=== PATIENT | female | born 1960 | race Caucasian/White ===

== ENCOUNTER 2019-04-03 07:49 | Outpatient (CLI) | payer BC, SELFPAY ==
--- NOTE | 2019-04-03 08:03 | MM_ITS ---
WS: [id number] SCREENING DIGITAL MAMMOGRAM WITH CAD HISTORY: SCREENING COMPARISON: 03/07/2018 and 10/05/2016 Bilateral CC and MLO views submitted. Computer aided detection analyzed. Breast composition: There are scattered areas of fibroglandular density. No suspicious masses, microc alcifications or architectural distortion. MM/[id number] IMPRESSION: BI-RADS: 1-Negative FOLLOW UP: 1 Year Follow-up
== END 2019-04-03 07:50 | disposition home or self-care (01) ==
LOC: RADSHAW 07:55
PROVIDERS: Family Provider Electrodiagnostic Medicine; PCP Electrodiagnostic Medicine; Visit Provider Electrodiagnostic Medicine
DX: Z12.31 Encounter for screening mammogram for malignant neoplasm of breast (principal)
CPT/HCPCS: 77067

== ENCOUNTER 2019-11-26 07:13 | Outpatient (RCR) | payer BC, SELFPAY | END 2019-12-14 23:59 | disposition home or self-care (01) | LOC: SPT 07:13 | PROVIDERS: PCP Electrodiagnostic Medicine; Referring Provider Nurse Practitioner Family; Visit Provider Nurse Practitioner Family | DX: M62.89 Other specified disorders of muscle (principal) | CPT/HCPCS: 97161; 97530 ==

== ENCOUNTER 2019-12-15 06:00 | Outpatient (RCR) | payer BC, SELFPAY | END 2020-01-13 23:59 | disposition home or self-care (01) | LOC: SPT 06:00 | PROVIDERS: PCP Electrodiagnostic Medicine; Visit Provider Nurse Practitioner Family | DX: M62.89 Other specified disorders of muscle (principal) | CPT/HCPCS: 97110; 97530 ==

== ENCOUNTER 2020-05-11 20:00 | Outpatient (CLI) | payer OTHER, SELFPAY | END 2020-05-11 20:01 | disposition home or self-care (01) | LOC: SLEEP 05-12 08:20 | PROVIDERS: PCP Electrodiagnostic Medicine; Visit Provider Nurse Practitioner Family | DX: G47.10 Hypersomnia, unspecified (principal); G47.33 Obstructive sleep apnea (adult) (pediatric) | CPT/HCPCS: 95810 ==

== ENCOUNTER 2020-06-08 07:51 | Outpatient (CLI) | payer OTHER, SELFPAY ==
--- NOTE | 2020-06-08 07:56 | MM_ITS ---
WS: [id number] Exam: [place] [id number] Date/Time of Exam: 06/08/2020 8:03 AM Reason For Exam: SCREENING VIEWS: MLO and CC views both breasts. Comparison made with prior exam of 10/05/2016, 03/07/2018 and 04/03/2019. Findings: There was no sign of mass, architectural distortion or suspicious calcification in either breast. Sc attered fibroglandular densities MM/[place] [id number] Impression: BI-RADS: 2-Benign FOLLOW-UP: 1 Year Follow-up This mammogram was also analyzed by the Computer Aided Detection System R2 Imag e Substance Abuse Rn.
== END 2020-06-08 07:52 | disposition home or self-care (01) ==
LOC: RADSHAW 07:53
PROVIDERS: PCP Nurse Practitioner Family; Visit Provider Nurse Practitioner Family
DX: Z12.31 Encounter for screening mammogram for malignant neoplasm of breast (principal)
CPT/HCPCS: 77067

== ENCOUNTER 2020-06-18 10:34 | Outpatient (CLI) | payer OTHER, SELFPAY ==
--- NOTE | 2020-06-18 | US_ITS ---
WS: [id number] RIGHT UPPER QUADRANT ULTRASOUND HISTORY: ELEVATED LIVER ENZYMES COMPARISON: None available. Liver: 20 cm in length. Liver is markedly enlarged extending at least over a length of 20 cm. The ent kingsley liver is poorly visualized. Marked coarsened hepatic echotexture and attenuation. There may be a small hepatic lesion centrally. Seen in a similar location on a prior CT was a minimally complex cyst adjacent to the LEFT portal vein. Gallbladder: Poorly visualized gallbladder. Small stone at the gallbladder neck is suspected. No alejandro cent wall thickening. CBD: 0.4 cm Pancreas: Not visualized. Right kidney: 10.4 cm in length. Normal size and echogenicity. No hydronephrosis or mass. Aorta and IVC: Not visualized. No ascites. US/US liver [id number] IMPRESSION: 1. Suspicious for stone at the gallbladder neck. 2. No bile duct dilatation. 3. Severely limited evaluation of the RIGHT upper quadrant. Severe hepatic joana atosis and hepatomegaly.
== END 2020-06-18 10:35 | disposition home or self-care (01) ==
LOC: RADOUTREAD 10:40
PROVIDERS: PCP Nurse Practitioner Family; Visit Provider Nurse Practitioner Family
DX: R74.8 Abnormal levels of other serum enzymes (principal); K76.0 Fatty (change of) liver, not elsewhere classified; R16.0 Hepatomegaly, not elsewhere classified
CPT/HCPCS: 76705

== ENCOUNTER 2020-06-24 20:00 | Outpatient (CLI) | payer OTHER, SELFPAY | END 2020-06-24 20:01 | disposition home or self-care (01) | LOC: SLEEP 06-25 09:34 | PROVIDERS: PCP Nurse Practitioner Family; Visit Provider Nurse Practitioner Family | DX: G47.31 Primary central sleep apnea (principal) | CPT/HCPCS: 95811 ==

== ENCOUNTER → 2020-09-24 08:25 | Outpatient (BNVA) | payer OTHER, SELFPAY | PROVIDERS: PCP Nurse Practitioner Family; Referring Provider Nurse Practitioner Family; Visit Provider Anesthesiology Pain Medicine | DX: G89.29 Other chronic pain (principal); M54.42 Lumbago with sciatica, left side; M47.816 Spondylosis without myelopathy or radiculopathy, lumbar region | CPT/HCPCS: 99204 ==

== ENCOUNTER 2020-11-13 06:00 | Outpatient (RCR) | payer OTHER, SELFPAY | END 2020-12-13 23:59 | disposition home or self-care (01) | LOC: SPT 06:00 | PROVIDERS: PCP Nurse Practitioner Family; Referring Provider Anesthesiology Pain Medicine; Visit Provider Anesthesiology Pain Medicine | DX: G89.29 Other chronic pain (principal); M47.816 Spondylosis without myelopathy or radiculopathy, lumbar region | CPT/HCPCS: 97110; 97161 ==

== ENCOUNTER 2020-12-14 06:00 | Outpatient (RCR) | payer OTHER, SELFPAY | END 2021-01-12 23:59 | disposition home or self-care (01) | LOC: SPT 06:00 | PROVIDERS: PCP Nurse Practitioner Family; Referring Provider Anesthesiology Pain Medicine; Visit Provider Anesthesiology Pain Medicine | DX: M54.9 Dorsalgia, unspecified (principal); G89.29 Other chronic pain; M47.816 Spondylosis without myelopathy or radiculopathy, lumbar region | CPT/HCPCS: 97110 ==

== ENCOUNTER → 2020-12-23 08:57 | Outpatient (BNVA) | payer OTHER, SELFPAY | PROVIDERS: PCP Nurse Practitioner Family; Visit Provider Anesthesiology Pain Medicine | DX: G89.29 Other chronic pain (principal); M47.816 Spondylosis without myelopathy or radiculopathy, lumbar region; Z87.891 Personal history of nicotine dependence | CPT/HCPCS: 99214 ==

== ENCOUNTER 2021-06-22 11:27 | Outpatient (CLI) | payer OTHER, SELFPAY ==
--- NOTE | 2021-06-22 11:36 | MR_ITS ---
WS: [id number] MRI LEFT KNEE NONCONTRAST TECHNIQUE: Axial PD, coronal PD fat sat, coronal PD, sagittal PD, and sagittal PD fat-sat images obta ined. CLINICAL INFORMATION: LEFT MEDIAL KNEE PAIN COMPARISON: MRI 4 FINDINGS: Distal quadriceps and patella tendons are intact. Hypertrophic patella. Normal ACL and PCL. Small sup rapatellar effusion. Chronic thinning of the medial and lateral meniscus. Chronic intrasubstance sign al abnormality involving the medial and lateral meniscus. No acute appearing meniscal tears. Chronic appearing peripheral extrusion of the medial meniscus. Grade III chondromalacia involving the medial and lateral joint compartments. Small amount of subchon dral edema involving the medial femoral condyle anteriorly. Hypertrophic changes along the joint line . Lobulated popliteal cyst measuring 2.3 x 2.4 x 5.1 cm AP by transverse by craniocaudal. Advanced chondromalacia patella. Small amount of subchondral edema involving the lateral patella face t. Normal lateral collateral ligament. Normal popliteus. Small amount of fluid and edema deep to the MCL consistent with grade 1-2 injury. Degenerative arthritis and chondromalacia is progressed compare d to 2013. MR/MR knee LT wo con* [id number] IMPRESSION: 1. Normal ACL and PCL. 2. Small suprapatellar effusion. Lobulated popliteal cyst as described above. 3. Chronic thinning of the medial lateral meniscus with grade III chondromalac ia involving the medial lateral joint compartments. No acute appearing meniscal tears. Chronic peripheral extrusion of the medial meniscus. 4. Advanced chondromalacia patella small amount of subchondral edema in the la teral patella facet. 5. Normal LCL. Grade 1-2 injury involving the MCL. 6. Several small ganglion cysts along the posterior joint line. Outbridge grading:
== END 2021-06-22 11:28 | disposition home or self-care (01) ==
PROVIDERS: PCP Nurse Practitioner Family; Visit Provider Family Medicine
DX: M25.562 Pain in left knee (principal); M71.22 Synovial cyst of popliteal space [Baker], left knee; M22.42 Chondromalacia patellae, left knee
CPT/HCPCS: 73721

== ENCOUNTER 2021-08-30 07:42 | Outpatient (CLI) | payer OTHER, SELFPAY ==
--- NOTE | 2021-08-30 07:50 | MM_ITS ---
WS: [id number] BILATERAL SCREENING DIGITAL BREAST TOMOSYNTHESIS MAMMOGRAM WITH CAD HISTORY: SCREENING COMPARISON: 06/08/2020 and 09/01/2019 Bilateral CC and MLO views with tomosynthesis and synthetic mammography submitted. Computer aided det ection analyzed. Breast composition: There are scattered areas of fibroglandular density. No suspicious masses, microc alcifications or architectural distortion. MM/[place] [id number] IMPRESSION: BI-RADS: 2-Benign FOLLOW UP: 1 Year Follow-up
== END 2021-08-30 07:43 | disposition home or self-care (01) ==
PROVIDERS: PCP Nurse Practitioner Family; Visit Provider Nurse Practitioner Family
DX: Z12.31 Encounter for screening mammogram for malignant neoplasm of breast (principal)
CPT/HCPCS: 77063; 77067

== ENCOUNTER → 2022-03-08 13:14 | Outpatient (BNVA) | payer OTHER, SELFPAY | PROVIDERS: PCP Nurse Practitioner Family; Visit Provider Podiatrist Foot & Ankle Surgery | DX: M72.2 Plantar fascial fibromatosis (principal); M21.6X1 Other acquired deformities of right foot; M21.6X2 Other acquired deformities of left foot; Z79.84 Long term (current) use of oral hypoglycemic drugs | CPT/HCPCS: 73630 ==

== ENCOUNTER 2022-09-02 07:09 | Outpatient (CLI) | payer OTHER, SELFPAY ==
--- NOTE | 2022-09-02 07:24 | MM_ITS ---
WS: [id number] BILATERAL SCREENING DIGITAL TOMOSYNTHESIS MAMMOGRAM WITH CAD HISTORY: SCREENING COMPARISON: 08/30/2021 and 06/08/2020 Bilateral CC and MLO views with tomosynthesis and synthetic mammography submitted. Computer aided det ection analyzed. Breast composition: There are scattered areas of fibroglandular density. No suspicious masses, microc alcifications or architectural distortion. MM/[place] [id number] IMPRESSION: BI-RADS: 1-Negative FOLLOW UP: 1 Year Follow-up
== END 2022-09-02 07:10 | disposition home or self-care (01) ==
PROVIDERS: PCP Nurse Practitioner Family; Visit Provider Nurse Practitioner Family
DX: Z12.31 Encounter for screening mammogram for malignant neoplasm of breast (principal)
CPT/HCPCS: 77063; 77067

== ENCOUNTER 2023-12-28 07:35 | Outpatient (CLI) | payer OTHER, SELFPAY ==
--- NOTE | 2023-12-28 07:38 | MM_ITS ---
WS: [id number] BILATERAL SCREENING DIGITAL TOMOSYNTHESIS MAMMOGRAM WITH CAD HISTORY: SCREENING COMPARISON: 09/02/2022, 08/30/2021 Bilateral CC and MLO views with tomosynthesis and synthetic mammography submitted. Computer aided det ection analyzed. Breast composition: There are scattered areas of fibroglandular density. No suspicious masses, microc alcifications or architectural distortion. MM/MM scr [place] tomosynthesis [id number] IMPRESSION: BI-RADS: 1 - Negative. FOLLOW UP: 1 Year Follow-up
== END 2023-12-28 07:36 | disposition home or self-care (01) ==
LOC: RAD 07:35
PROVIDERS: PCP Nurse Practitioner Family; Visit Provider Nurse Practitioner Family
DX: Z12.31 Encounter for screening mammogram for malignant neoplasm of breast (principal); R92.323 Mammographic fibroglandular density, bilateral breasts
CPT/HCPCS: 77063; 77067

== ENCOUNTER 2025-01-24 09:00 | Outpatient (CLI) | payer OTHER, SELFPAY ==
--- NOTE | 2025-01-24 09:06 | MM_ITS ---
WS: [id number] BILATERAL SCREENING DIGITAL TOMOSYNTHESIS MAMMOGRAM WITH CAD HISTORY: SCREENING COMPARISON: 12/28/2023, 09/02/2022 Bilateral CC and MLO views with tomosynthesis and synthetic mammography submitted. Computer aided detection analyzed. Breast composition: There are scattered areas of fibroglandular density. No suspicious masses, microcalcifications or architectural distortion. MM/MM scr [place] tomosynthesis [id number] IMPRESSION: BI-RADS: 2 - Benign. FOLLOW UP: 1 Year Follow-up
== END 2025-01-24 09:01 | disposition home or self-care (01) ==
LOC: RAD 09:02
PROVIDERS: PCP Nurse Practitioner Family; Visit Provider Nurse Practitioner Family
DX: Z12.31 Encounter for screening mammogram for malignant neoplasm of breast (principal); R92.323 Mammographic fibroglandular density, bilateral breasts
CPT/HCPCS: 77063; 77067